=== PATIENT | female | born 1975 | race Caucasian/White ===

== ENCOUNTER 2021-10-14 11:40 | Outpatient (CLI) | payer MEDICAID, SELFPAY ==
--- NOTE | 2021-10-14 13:32 | NEURO ---
NCS and/or EMG Patient Report Ordering Doctor: Devan Granda DATE OF SERVICE: 10/14/21 Indication: Bilateral hand pain and numbness which will fluctuate depending on activity. Symptoms are more severe on the left and she is left handed. Evaluate for median neuropathy at the wrist. Findings: Nerve conduction studies were performed in the right and left upper extremities. The right median motor study recording the abductor pollicis brevis showed a normal amplitude, normal distal latency and normal conduction velocity. The right ulnar motor study recording the abductor digiti minimi showed a normal amplitude, normal distal latency and normal conduction velocity. No conduction block or focal slowing was present across the elbow. The right median sensory response recording digit two showed a normal amplitude, latency and conduction velocity. The right ulnar sensory response recording digit five showed a normal amplitude, latency and conduction velocity. The right radial sensory response recording over the extensor snuff box showed a normal amplitude, latency and conduction velocity. The left median motor study recording the abductor pollicis brevis showed a normal amplitude, prolonged distal latency and normal conduction velocity. The left ulnar motor study recording the abductor digiti minimi showed a normal amplitude, normal distal latency and normal conduction velocity. No conduction block or focal slowing was present across the elbow. The left median sensory response recording digit two showed a normal amplitude, borderline latency and mildly slowed conduction velocity. The left ulnar sensory response recording digit five showed a normal amplitude, latency and conduction velocity. The left radial sensory response recording over the extensor snuff box showed a normal amplitude, latency and conduction velocity. Right median-ulnar lumbrical / interosseous motor latencies showed a prolonged median latency compared to the ulnar. Left median-ulnar lumbrical / interosseous motor latencies showed a prolonged median latency compared to the ulnar. Needle EMG of the left upper extremity and cervical paraspinal muscles was performed. No denervation was seen in any muscle. The left abductor pollicis brevis demonstrated motor units which were mildly polyphasic, but otherwise unremarkable. All other motor unit morphology, activation and recruitment patterns were normal. Needle EMG of the right abductor pollicis brevis muscle was performed. No denervation was seen. Motor unit morphology, activation and recruitment patterns were normal. Impression: This is an abnormal study. 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 In addition, there is electrophysiologic evidence suggestive, but not diagnostic of, a very mild median neuropathy across the right wrist. There were no findings to suggest a superimposed cervical radiculopathy in the left upper extremity. Lorenzo Padgett D.O. Multi Select Codes Neurology Neurology Interp Codes: 15167-99 Musc tst done w/nerv tst frank (interp) (59), 48013-93 Musc test done w/n test comp (interp) and 28616-21 Nrv cndj test 13/> studies (interp)
== END 2021-10-14 23:59 | disposition home or self-care (01) ==
LOC: PSN 11:43
PROVIDERS: PCP Family Medicine; Referring Provider Orthopaedic Surgery; Visit Provider Orthopaedic Surgery
DX: M79.641 Pain in right hand (principal); M79.642 Pain in left hand; R20.2 Paresthesia of skin
CPT/HCPCS: 95885; 95886; 95913

== ENCOUNTER 2021-11-06 05:19 | Day surgery (SDC) | payer MEDICAID, SELFPAY ==
[2021-11-06] VITALS (7 sets, daily range): BP systolic 103–118; BP diastolic 58–89; PULSE 77–92; RESP 16–18; TEMP 36.2–37; O2SAT 95–99; BMI 30.2
--- NOTE | 2021-11-06 | GASB_PTH ---
PATIENT: RENEE GUERRERO LOC: EN U#:[id number] AGE/SX: 46/F ROOM: RE11/06/[address]: Dr. Saul Armenta DO : 1975 BED: DIS: 11/06/2021 SPEC #: [id number] RECD: 11/06/21 12:34 STATUS: JENNY ROBERT #: [id number] LESLIE: 11/06/21 00:[address]: Saul Armenta DEPT: SURGICAL PATHOLOGY RECD BY: Jonathan Walters ENTERED: 11/06/21 12:35 SP TYPE: Gastric Bx OTHR DR: Darcy Larsen PA-C Tissues: A - Gastric mucous membrane B - Esophageal mucous membrane Procedures: Surgery Specimen Level IV HEADER OPERATION: EGD ([facility] [place]) PRE-OP DIAGNOSIS: GERD TISSUE SUBMITTED: A ? Gastric body biopsy, B ? Distal esophagus biopsy MICROSCOPIC DIAGNOSIS A. Gastric body, biopsy: Chronic gastritis. See comment. B. Distal esophagus, biopsy: Ulceration with associated acute and chronic inflammation and fibrinopurulent debris. Negative for fungal organisms. No evidence of goblet cell metaplasia. See comment. AM:shiva 11/07/2021 COMMENT A. The results of immunohistochemistry for Helicobacter pylori will be reported separately ([id number]). B. GMS stain with matched control was used in the evaluation of this case. Alcian blue/PAS stain with matched control supports the above diagnosis. MICROSCOPIC DESCRIPTION Slides are reviewed. GROSS DESCRIPTION A - Received in fixative is one container labeled with the patient's name and designated gastric biopsy. The specimen consists of multiple irregular fragments of light layne soft tissue that in aggregate measure 1 x 0.3 x 0.1 cm. The specimen is totally submitted in one cassette. B - Received in fixative is one container labeled with the patient's name and designated distal esophagus biopsy. The specimen consists of multiple irregular fragments of light layne soft tissue that in aggregate measure 1 x 0.6 x 0.1 cm. The specimen is totally submitted in one cassette. / AM:shiva 11/06/2021 TC:2 CPT: 68171 x2, 98495, 89657
[2021-11-06] MEDS: Lactated Ringers 1,000 ML 15 ML IV (05:53)
--- NOTE | 2021-11-06 06:30 | IMM_PTH ---
PATIENT: RENEE GUERRERO LOC: [facility] U#:[id number] AGE/SX: 46/F ROOM: RE11/06/[address]: Dr. Saul Armenta DO : 1975 BED: DIS: 11/06/2021 SPEC #: [id number] RECD: 11/06/21 14:08 STATUS: JENNY ROBERT #: [id number] LESLIE: 11/06/21 06:[address]: Saul Armenta DEPT: IMMUNOHISTOCHEMISTRY RECD BY: Farrah Dallas ENTERED: 11/06/21 14:08 SP TYPE: IMMUNO OTHR DR: Darcy Larsen PA-C Tissues: A - Stomach, NOS Procedures: H Pylori (initial) PHYSICIAN & INSTITUTION [place] [id number] SPECIMEN INFORMATION: Tissue Source: A ? Gastric body biopsy Clinical Info: GERD Specimen Number: [id number] CPT code: 11893 METHODOLOGY: Deparaffinized sections of prefer/formalin-fixed tissue or PAP/DQ stained slides are incubated with monoclonal/polyclonal antibodies/oligonucleotide probes. Localization is made via biotin free immunoperoxidase method. Appropriate controls are performed and reacted as expected. Results on target cell population are indicated in the following table: RESULTS: ANTIBODY / CLONE RESULT Block A H Pylori (polyclonal) negative These tests were developed and their performance characteristics determined by [facility]. They may not have been cleared or approved by the U.S. Food and Drug Administration. The FDA has determined that such clearance or approval is not necessary. INTERPRETATION: A. Gastric body, biopsy: Negative for Helicobacter pylori organisms. AM:shiva 11/08/2021
--- NOTE | 2021-11-06 06:41 | PCM.HP.BLA ---
History and Physical Date of Admission: 11/06/21 RENEE GUERRERO, is a 46 F who presents to the office today for Evaluation of chronic GERD. Referred by her PCP for management of this. Previously seen by waiter/waitress club Dr. Dobbs in [place]. Currently taking lansoprazole 30mg QD. She is additionally having loud grumbling sounds in her abdomen, sometimes she will have nausea; particularly with peanut butter, carbonated beverages and chocolate. There is a history a possible hiatal hernia. Reporting tooth decay r/t acid in her mouth and will wake during the night with emesis in her mouth. She would also like to discuss weight loss, current weight 186lbs. Medical history includes fatigue, angular cheilitis, anxiety. ROS Const Constitutional: No anorexia, fatigue, fever(s), weight change or sleep problems Eyes Eyes: No change in vision ENT ENT: No abnormal hearing, difficulty swallowing, mouth lesions, tongue swelling or throat swelling Resp Respiratory: No cough or shortness of breath Cardio Cardiology: No chest pain at rest, chest pain with exertion, shortness of breath or dyspnea on exertion Gastro GI: No difficulty swallowing Genitourinary-Female: No difficulty urinating or burning urination Musc Musculoskeletal: No joint pain, joint swelling, muscle weakness or decreased muscle mass Skin Skin: No hair loss in leg, yellowing of the eye, itchy eyes, rash, skin ulcer or skin swelling Neuro Neurology: No abnormal hearing, abnormal movements, confusion, unsteady gait/balance or memory loss Psych Psychiatric: No anxiety, No confusion and No memory loss Endo Endocrine: No fatigue or weight change Aller/Imm Allergy/Immunologic: No itchy eyes, throat swelling or tongue swelling Russell/Lymp Hematologic/Lymphatic: No easy bleeding, easy bruising or enlarged lymph nodes Exam Const General: cooperative and comfortable Nutritional Appearance: average body habitus and well nourished [facility] Head: normal to inspection Ears: hearing grossly normal bilaterally Nose: external nose normal Face and sinus: normal facial exam Mouth: oral mucosae normal Throat: posterior oropharynx normal Eyes General: appearance normal, both eyes and all related structures Neck Neck: normal visual inspection Chest Chest palpation & inspection: normal inspection of the chest and normal palpation of entire chest wall Resp Effort & Inspection: normal respiratory effort Auscultation: Bilateral: Clear to Auscultation Cardio Palpation: normal PMI Rate: regular rate Rhythm: regular rhythm GI Inspection: normal to inspection Auscultation: normal bowel sounds Percussion: normal to percussion Palpation: no hepatosplenomegaly Skin General: no rashes or lesions noted Neuro General: patient alert Extrem General: normal to inspection Psych Affect: normal affect Assessment and Plan Assessment and Plan (1) GERD (gastroesophageal reflux disease): Status: Acute Plan - Dr. Hughes Friend, DO: Differential diagnosis for refractory GERD would be nonerosive reflux disease, eosinophilic esophagitis, bile acid reflux, functional disease. She should undergo an EGD with Ruiz placement, biopsies throughout the esophagus to rule out eosinophilic disease and possibly esophageal manometry. She will be prescribed pantoprazole 40 mg twice a day but she will need to stop acid suppression 1 week prior to the Ruiz study. I have re-examined the patient. There are no clinical changes since date of exam.
--- NOTE | 2021-11-06 07:11 | OP.EGD_ITS ---
Patient Name: Brynn Larson Procedure Date: 11/06/2021 6:20 AM Date of : 1975 Age: 46 Procedure: Upper GI endoscopy Indications: Heartburn, Gastro-esophageal reflux disease Providers: Saul Armenta DO Referring MD: Saul Armenta DO Medicines: See the Anesthesia note for documentation of the administered medications Patient Profile: This is a 46 year old female. Refer to note in patient chart for documentation of history and physical. Patient has symptoms of chronic dyspepsia and chronic heartburn. Complications: No immediate complications. Procedure: Pre-Anesthesia Assessment: - Prior to the procedure, a History and Physical was performed, and patient medications and allergies were reviewed. The risks and benefits of the procedure and the sedation options and risks were discussed with the patient. All questions were answered and informed consent was obtained. Patient identification and proposed procedure were verified by the physician. Mental Status Examination: normal. Airway Examination: normal oropharyngeal airway and neck mobility. Respiratory Examination: clear to auscultation. CV Examination: normal. Prophylactic Antibiotics: The patient does not require prophylactic antibiotics. Prior Anticoagulants: The patient has taken no previous anticoagulant or antiplatelet agents. After reviewing the risks and benefits, the patient was deemed in satisfactory condition to undergo the procedure. The anesthesia plan was to use minimal sedation / analgesia (anxiolysis). Immediately prior to administration of medications, the patient was re-assessed for adequacy to receive sedatives. The heart rate, respiratory rate, oxygen saturations, blood pressure, adequacy of pulmonary ventilation, and response to care were monitored throughout the procedure. The physical status of the patient was re-assessed after the procedure. After obtaining informed consent, the endoscope was passed under direct vision. Throughout the procedure, the patient's blood pressure, pulse, and oxygen saturations were monitored continuously. The Endoscope was introduced through the mouth, and advanced to the second part of duodenum. The upper GI endoscopy was accomplished without difficulty. The patient tolerated the procedure well. Moderate Sedation: Moderate (conscious) sedation was administered by the endoscopy nurse and supervised by the endoscopist. The patient's oxygen saturation, heart rate, blood pressure and response to care were monitored. Total physician intraservice time was 15 minutes. Scope In: 6:45:57 AM Scope Out: 6:59:14 AM Total Procedure Duration Time 0 hours 13 minutes 17 seconds Findings: LA Grade D (one or more mucosal breaks involving at least 75% of esophageal circumference) esophagitis with bleeding was found 34 to 40 cm from the incisors. Biopsies were taken with a cold forceps for histology. Verification of patient identification for the specimen was done. Estimated blood loss was minimal. A large hiatal hernia was present. Patchy moderately erythematous mucosa without bleeding was found in the stomach. Biopsies were taken with a cold forceps for histology. Verification of patient identification for the specimen was done. Estimated blood loss was minimal. The first portion of the duodenum was normal. A large hiatal hernia was found. The proximal extent of the gastric folds (end of tubular esophagus) was 35 cm from the incisors. The hiatal narrowing was 38 cm from the incisors. The REED capsule with delivery system was introduced through the mouth and advanced into the esophagus, such that the REED pH capsule was positioned 29 cm from the incisors, which was 6 cm proximal to the GE junction. Suction was applied to the well of the REED pH capsule to suck in the adjacent mucosa of the esophagus using the external vacuum pump set at a minimum vacuum pressure of 550 mmHg for 30 seconds. The REED pH capsule was then deployed by depressing the plunger on top of the handle to advance the locking pin into the mucosa, thereby attaching the capsule to the esophagus. The plunger was then rotated a quarter turn clockwise to release the capsule from the delivery system. The delivery system was then withdrawn. Endoscopy was utilized for probe placement and diagnostic evaluation. Impression: - LA Grade D reflux esophagitis. Biopsied. - Large hiatal hernia. - Erythematous mucosa in the stomach. Biopsied. - Normal first portion of the duodenum. Recommendation: - Discharge patient to home. - Resume previous diet. - Continue present medications. - Await pathology results. - Return to my office. Procedure Code(s): --- Professional --- 02607, Esophagogastroduodenoscopy, flexible, transoral; with biopsy, single or multiple 48648, 59, Moderate sedation services provided by the same physician or other qualified health healthcare interpreter performing the diagnostic or therapeutic service that the sedation supports, requiring the presence of an independent trained observer to assist in the monitoring of the patient's level of consciousness and physiological status; initial 15 minutes of intraservice time, patient age 5 years or older CPT copyright 2017 [employer] [place] [employer]. All rights reserved. The codes documented in this report are preliminary and upon meteorological equipment repairer review may be revised to meet current compliance requirements. Saul Armenta DO 11/06/2021 7:10:10 AM This report has been signed electronically. Number of Addenda: 1 Note Initiated On: 11/06/2021 6:20 AM Addendum Number: 1 Addendum Date: 05/21/2022 6:29:06 AM MAC was used as sedation for this procedure. Saul Armenta DO 05/21/2022 6:29:10 AM This report has been signed electronically.
--- NOTE | 2021-11-06 07:11 | OP.CCLET_ITS ---
05/21/2022 [facility] Re : Upper GI endoscopy procedure for Brynn Larsen This procedure was performed on Saturday, November 06, 2021. My impressions and recommendations are as follows: Impressions : - LA Grade D reflux esophagitis. Biopsied. - Large hiatal hernia. - Erythematous mucosa in the stomach. Biopsied. - Normal first portion of the duodenum. Recommendations : - Discharge patient to home. - Resume previous diet. - Continue present medications. - Await pathology results. - Return to my office. My findings are described in the full procedure note, which is enclosed. If I can be of further assistance, please feel free to contact me at . Sincerely, Saul Armenta, 11/06/2021 7:10:10 AM This report has been signed electronically.
--- NOTE | 2021-11-20 09:15 | EX.PCM.PN.GI ---
Subjective Subjective 46-year-old female with GERD ambulatory pH monitoring placed in esophagus during EGD on 11/06/2021. She was off PPI for the study. Objective Data Objective Data Interpretation of ambulatory pH monitoring test results: Overview of the data shows she had acid reflux day and night, after meals and while supine, with and without symptoms. Test ran for 48 hours. Day 2 was her worst day. Acid exposure time on day 2 was 16.2%; total fraction time that pH is less than 4 is the parameter best correlated with endoscopic damage. Normal total fraction time is less than 4.4% on the worst day. DeMeester score on day 2 was 60.4; normal DeMeester score is less than or equal to 14.72. Symptom association probability (SAP) of greater than 95% indicates her [id number] association is not by chance. Vital Signs: Assessment & Plan Assessment/Plan (1) GERD (gastroesophageal reflux disease): PLAN: Abnormal ambulatory pH monitoring study Will discuss results with patient at her follow-up appointment Charges/Coding Procedures Gastroenterology CF Procedures [id number]: [id number] G-esoph reflx tst w/electrod
== END 2021-11-06 23:59 | disposition home or self-care (01) ==
LOC: EN 05:19 → AC 05:20
PROVIDERS: PCP Family Medicine; Referring Provider Internal Medicine Gastroenterology; Visit Provider Internal Medicine Gastroenterology
PROC: 0DJ08ZZ Inspection of Upper Intestinal Tract, Via Natural or Artificial Opening Endoscopic (ICD-10-PCS; CPT 43235; principal; 2021-11-06 06:25)
DX: K29.50 Unspecified chronic gastritis without bleeding (principal); K21.00 Gastro-esophageal reflux disease with esophagitis, without bleeding; K44.9 Diaphragmatic hernia without obstruction or gangrene; G47.30 Sleep apnea, unspecified; F41.9 Anxiety disorder, unspecified; Z79.899 Other long term (current) drug therapy
CPT/HCPCS: 43239; 91035; 87811; 88305; 88342; C9803; J7120; J2405

== ENCOUNTER → 2021-12-12 | Outpatient (CLI) | payer MEDICAID, SELFPAY ==
--- NOTE | 2021-12-12 08:06 | RAD_ITS ---
INDICATION: K44.9 - Diaphragmatic hernia without obstruction or gangrene EXAMINATION/TECHNIQUE: Fluoroscopic evaluation of the of upper gastrointestinal tract was performed in multiple projections, supine, erect and prone positions. Patient received effervescent granules in addition to Thin and thick barium orally. Total Fluoroscopic Time: 3:20 Minutes. Number of Fluoroscopic Images: 49 COMPARISON: None. FINDINGS: Unremarkable transit of the contrast bolus through the oral cavity into the esophagus, no evidence of laryngeal aspiration or penetration. Unremarkable transit of the contrast bolus the esophagus, no evidence of esophageal diverticula or strictures, no evidence of a SCHATZKI ring was seen. A small type I hiatus hernia is visualized at the gastroesophageal junction, severe gastroesophageal reflux was noted up to the cervical esophagus. The stomach demonstrates unremarkable contours, no evidence of mucosal irregularities, no evidence of ulcerations or intraluminal masses is seen. The gastric outlet is unremarkable, unremarkable duodenal sweep visualized. RAD/Upper GI w/BA Swallow IMPRESSION: Small type I hiatus hernia with severe gastroesophageal reflux visualized up to the cervical esophagus. Electronically Signed: Damaso Rollins MD at 11:20 EDT ,
== END | disposition home or self-care (01) ==
LOC: RAD 08:04
PROVIDERS: PCP Family Medicine; Referring Provider Surgery; Visit Provider Surgery
DX: K44.9 Diaphragmatic hernia without obstruction or gangrene (principal); K21.9 Gastro-esophageal reflux disease without esophagitis
CPT/HCPCS: 74246